=== PATIENT | female | born 1950 | race Caucasian/White ===

== ENCOUNTER 2016-06-25 08:13 | Day surgery (SDC) | payer MEDICARE, OTHER ==
[~2016-06-25 08:13] MED LIST: ALEVE220 M1 PO; ANTACID400 MG PO; ASPIRIN81 M1 PO; BIOTIN PO; BUPROPION HCL150 M PO; CALCIUM ACETAT667 M2 PO; CENTRUM SILVER1 EAC6 PO; CHOLECALCIFEROL PO; ENULOSE10 GM/151 PO; FEMARA2.5 M1 PO; FISH OIL 11000 MG/CA PO; HYDROCODON-ACE1 EA16 PO; HYDROCORTISONE10 M1 PO; LEXAPRO10 M2 PO; LIPITOR10 M1 PO; MS CONTIN30 M1 PO; PHILLIPS'400 MG/51 PO; POTASSIUM PO; POTASSIUM-9999 MG PO; PROLIA60 MG/1 M1 SC; TYLENOL325 M2 PO
[2016-06-25 09:02] LABS: BASO % 0.2 % (0-2); EOS % 2.1 % (0-7); EOSINOPHIL ABSOLUTE COUNT 0.1 tho/cmm (0.0-0.7); HCT-HEMATOCRIT 34.3 % (34.0-49.0); HGB-HEMOGLOBIN 11.4 gm/dl (12.0-15.5); IMMATURE GRANULOCYTES ABSOLUTE 0.03 tho/cmm (0-0.03); IMMATURE GRANULOCYTES PERCENT 0.6 % (0-0.3); LYMPH % 23.4 % (20-45); LYMPH ABSOLUTE COUNT 1.2 tho/cmm (0.8-4.5); MCH (MEAN CORPUSCULAR HGB) 33.2 pg (28.0-32.0); MCHC MEAN CORPUSCULAR HGB CONC 33.2 % (32.0-36.0); MEAN PLATELET VOLUME 9.8 cmc (9.4-12.4); MONO % 5.4 % (0-12); MONOCYTE ABSOLUTE COUNT 0.3 tho/cmm (0.0-1.2); NEUTROPHIL ABSOLUTE COUNT 3.6 tho/cmm (1.6-8.0); NEUTROPHIL-AUTOMATED 3.6 tho/cmm (1.6-8.0); NEUTROPHILS % 68.3 % (40-80); PLATELET COUNT 167 tho/cmm (150-450); RED BLOOD COUNT 3.43 mil/cmm (4.00-5.20); RED CELL DISTRIBUTION WIDTH 13.6 % (12.4-16.4); WHITE BLOOD COUNT 5.2 tho/cmm (4.0-10.0)
[2016-06-25 09:13] LABS: PROTHROMBIN TIME 11.2 SECONDS (9.0-13.6)
[2016-12-19] MEDS ORDERED: PERCOCET 5-3251 EACH PO (16:53)
[2016-12-19] MEDS ORDERED: MORPHINE PATCH TOP (16:54)
[2016-12-20] MEDS ORDERED: CORTEF20 M1 PO ×2 (11:48→11:49)
[2016-12-20] MEDS ORDERED: DURAGESIC TD (11:48)
[2016-12-20] MEDS ORDERED: VITAMIN D35000 UNI2 PO (11:50)
== END 2016-06-25 12:45 ==
LOC: CTSCAN 08:13 → SHSC 08:14
PROVIDERS: Radiology Diagnostic Radiology
PROC: 0QU03JZ Supplement Lumbar Vertebra with Synthetic Substitute, Percutaneous Approach (ICD-10-PCS; principal; 2016-06-25)
PROC: 0QB03ZX Excision of Lumbar Vertebra, Percutaneous Approach, Diagnostic (ICD-10-PCS; 2016-06-25)
DX: M54.5 Low back pain (principal); M85.80 Other specified disorders of bone density and structure, unspecified site; M48.56XA Collapsed vertebra, not elsewhere classified, lumbar region, initial encounter for fracture; C79.51 Secondary malignant neoplasm of bone; Z79.82 Long term (current) use of aspirin; Z79.899 Other long term (current) drug therapy; Z92.21 Personal history of antineoplastic chemotherapy; Z85.3 Personal history of malignant neoplasm of breast; Z90.13 Acquired absence of bilateral breasts and nipples; Z90.710 Acquired absence of both cervix and uterus; Z90.49 Acquired absence of other specified parts of digestive tract; Z98.890 Other specified postprocedural states
CPT/HCPCS: J0690; J2250; J3010; J7030

== ENCOUNTER 2016-07-05 06:22 | Day surgery (SDC) | payer MEDICARE, OTHER ==
[2016-07-05 07:48] LABS: BASO % 0.3 % (0-2); EOS % 2.6 % (0-7); EOSINOPHIL ABSOLUTE COUNT 0.1 tho/cmm (0.0-0.7); HCT-HEMATOCRIT 34.3 % (34.0-49.0); HGB-HEMOGLOBIN 11.3 gm/dl (12.0-15.5); IMMATURE GRANULOCYTES ABSOLUTE 0.03 tho/cmm (0-0.03); IMMATURE GRANULOCYTES PERCENT 0.9 % (0-0.3); LYMPH % 31.2 % (20-45); LYMPH ABSOLUTE COUNT 1.1 tho/cmm (0.8-4.5); MCH (MEAN CORPUSCULAR HGB) 32.6 pg (28.0-32.0); MCHC MEAN CORPUSCULAR HGB CONC 32.9 % (32.0-36.0); MCV (MEAN CELL VOLUME) 98.8 fl (82.0-96.0); MEAN PLATELET VOLUME 9.6 cmc (9.4-12.4); MONO % 7.6 % (0-12); MONOCYTE ABSOLUTE COUNT 0.3 tho/cmm (0.0-1.2); NEUTROPHILS % 57.4 % (40-80); PLATELET COUNT 201 tho/cmm (150-450); RED BLOOD COUNT 3.47 mil/cmm (4.00-5.20); RED CELL DISTRIBUTION WIDTH 13.9 % (12.4-16.4); WHITE BLOOD COUNT 3.4 tho/cmm (4.0-10.0)
[2016-07-05 08:00] LABS: PROTHROMBIN TIME 11.9 SECONDS (9.0-13.6)
[2016-12-19] MEDS ORDERED: PERCOCET 5-3251 EACH PO (16:53)
[2016-12-19] MEDS ORDERED: MORPHINE PATCH TOP (16:54)
[2016-12-20] MEDS ORDERED: CORTEF20 M1 PO ×2 (11:48→11:49)
[2016-12-20] MEDS ORDERED: DURAGESIC TD (11:48)
[2016-12-20] MEDS ORDERED: VITAMIN D35000 UNI2 PO (11:50)
== END 2016-07-05 11:44 ==
LOC: RADSP 06:22 → SHSB 06:25
PROVIDERS: Radiology Diagnostic Radiology
PROC: 0PB43ZX Excision of Thoracic Vertebra, Percutaneous Approach, Diagnostic (ICD-10-PCS; principal; 2016-07-05)
PROC: 0PU43JZ Supplement Thoracic Vertebra with Synthetic Substitute, Percutaneous Approach (ICD-10-PCS; 2016-07-05)
DX: C79.51 Secondary malignant neoplasm of bone (principal); C50.912 Malignant neoplasm of unspecified site of left female breast; Z79.899 Other long term (current) drug therapy
CPT/HCPCS: C1830; J0690; J2250; J3010; J7030